=== PATIENT | male | born 2000 | race Caucasian/White ===

== ENCOUNTER 2019-06-23 15:33 | Emergency (ER) | payer BC ==
[~2019-06-23] VITALS: Ht 185.4 cm; Wt 71.4 kg
[2019-06-23 15:40] VITALS: BP 119/52
--- NOTE | 2019-06-23 15:55 | NUR ---
PT AMBULATED STEADILY TO ROOM FROM LOBBY WITH RN. CARRILLO NOTED. TO RESTROOM TO PROVIDE UA.
--- NOTE | 2019-06-23 16:51 | NUR ---
UA COLLECTED AND SENT TO LAB
[2019-06-23 17:21] LABS: MICROSCOPIC INDICATED
[2019-06-23 17:29] LABS: CULTURE INDICATED? NO
--- NOTE | 2019-06-23 17:50 | NUR ---
DC EDUCATION PROVIDED, PT DEMONSTRATES UNDERSTANDING. PT AMBUALTED STEADILY TO DC WITH RN
== END 2019-06-23 18:06 | disposition home or self-care (01) ==
LOC: ED 16:55
DX: N50.811 Right testicular pain (principal)
CPT/HCPCS: 76870; 81001; 99284